=== PATIENT | female | born 1960 | race Two or more races ===

== ENCOUNTER 2017-01-27 12:17 | Emergency (ER) | payer MEDICAID ==
[~2017-01-27] VITALS: Ht 162.6 cm; Wt 63.5 kg
[2017-01-27 12:53] VITALS: BP 122/90
[2017-01-27] MEDS ORDERED: TDAP [DIPH/PERTUSSIS/TET] 0.5 ML VIAL IM ONE ×2 (12:53→13:00)
== END 2017-01-27 13:16 | disposition home or self-care (01) ==
LOC: ER 12:19
DX: M79.661 Pain in right lower leg (principal); W54.0XXA Bitten by dog, initial encounter; Y93.89 Activity, other specified; Y92.098 Other place in other non-institutional residence as the place of occurrence of the external cause; Y99.0 Civilian activity done for income or pay
CPT/HCPCS: 90471; 90715; 99283; A4606; Z7610